=== PATIENT | male | born 1950 | race Caucasian/White ===

== ENCOUNTER 2024-12-18 13:34 | Emergency (ER) | payer BC, MEDICARE ==
[~2024-12-18] VITALS: Ht 185.4 cm; Wt 96.7 kg
[2024-12-18] MEDS ORDERED: PROP60TA14 PO (13:50)
[2024-12-18] MEDS ORDERED: LISI10TA22 PO (13:50)
[2024-12-18] MEDS ORDERED: OMEP40CA5 PO (13:50)
[2024-12-18] MEDS ORDERED: HYDR-3713 PO (13:50)
[2024-12-18] MEDS ORDERED: ATOR40TA75 PO (13:50)
[2024-12-18] MEDS ORDERED: ETOMIDATE 20 MG/10 ML VIAL As Ordered ONE (15:06)
[2024-12-18] MEDS: NS (Normal Saline) 0.9% 1,000 ML IV SCH (15:08)
[2024-12-18] MEDS: ETOMIDATE 20 MG/10 ML VIAL IV ONE (15:08)
[2024-12-18] MEDS ORDERED: HOME MED LIST COMPLETE! XX SCH (15:45)
[2024-12-18 16:31] VITALS: BP 163/88; TEMP 99.3; O2SAT 98
== END 2024-12-18 16:51 | disposition home or self-care (01) ==
LOC: EDBD 13:34 → M ED 13:34
DX: S73.005A Unspecified dislocation of left hip, initial encounter (principal); X58.XXXA Exposure to other specified factors, initial encounter; Y92.9 Unspecified place or not applicable; Y93.89 Activity, other specified; Y99.9 Unspecified external cause status; I10 Essential (primary) hypertension; E78.5 Hyperlipidemia, unspecified